=== PATIENT | female | born 1965 | race Two or more races ===

== ENCOUNTER 2023-01-04 05:07 | Day surgery (SDC) | payer OTHER ==
[~2023-01-04] VITALS: Ht 165.1 cm; Wt 88.9 kg
[~2023-01-04 05:07] MED LIST: GLIMEPIRIDE2 M1 PO; HYDROCHLOROTHIA25 MG PO; TOPROL XL50 M1 PO; [UNRECOGNIZED DRUG - CODE] PO
[2023-01-04] MEDS ORDERED: TYLENOL325 MG PO (08:15)
== END 2023-01-04 12:20 | disposition home or self-care (01) ==
LOC: CIR.AMB 05:07
PROVIDERS: ATTEND Obstetrics & Gynecology Gynecology
DX: N84.0 Polyp of corpus uteri (principal); Z88.0 Allergy status to penicillin; Z88.6 Allergy status to analgesic agent; Z20.822 Contact with and (suspected) exposure to COVID-19; I10 Essential (primary) hypertension